=== PATIENT | female | born 1980 | race Caucasian/White ===

== ENCOUNTER 2023-12-25 09:39 | Oncology outpatient (recurring) (ONCR) | payer MEDICAID, SELFPAY ==
[2023-12-25 10:00] VITALS: BP 123/82; PULSE 61; RESP 16; TEMP 36.2; O2SAT 96
[2023-12-25] MEDS: sodium chloride 0.9% 250 ML 75 ML IV (10:30)
[2023-12-25] MEDS: iron sucrose 500 MG in sodium chloride 0.9% 250 ML 78 MG IV (10:53)
[2023-12-25 13:45] VITALS: BP 136/87; PULSE 74; TEMP 37.1; O2SAT 98
== END 2024-01-06 23:59 | disposition home or self-care (01) ==
PROVIDERS: Family Provider Family Medicine; PCP Family Medicine; Visit Provider Family Medicine
DX: D50.9 Iron deficiency anemia, unspecified (principal)
CPT/HCPCS: 96365; 96366; J1756; J7050

== ENCOUNTER 2024-05-26 10:08 | Oncology outpatient (recurring) (ONCR) | payer MEDICAID, SELFPAY ==
[2024-05-17 14:17] VITALS: BP 133/81; PULSE 84; RESP 18; TEMP 36.3; O2SAT 98
[2024-05-17] MEDS: iron sucrose 200 MG in sodium chloride 0.9% (100 ml) 100 ML 220 MG IV (14:27)
[2024-05-17 15:00] VITALS: BP 130/84; PULSE 84; RESP 16; TEMP 36.8; O2SAT 98
[2024-05-19 10:23] VITALS: BP 132/85; PULSE 92; TEMP 36.7; O2SAT 94
[2024-05-19] MEDS: iron sucrose 200 MG in sodium chloride 0.9% (100 ml) 100 ML 220 MG IV (10:46)
[2024-05-19 11:26] VITALS: BP 115/84; PULSE 80; RESP 16; TEMP 36.5; O2SAT 97
[2024-05-21 10:16] VITALS: BP 122/74; PULSE 76; RESP 16; TEMP 36.6; O2SAT 98
[2024-05-21] MEDS: iron sucrose 200 MG in sodium chloride 0.9% (100 ml) 100 ML 220 MG IV (10:27)
[2024-05-21 11:11] VITALS: BP 124/83; PULSE 74; RESP 16; O2SAT 95
[2024-05-24 08:45] VITALS: BP 129/83; PULSE 86; RESP 16; TEMP 36.4; O2SAT 97
[2024-05-24] MEDS: iron sucrose 200 MG in sodium chloride 0.9% (100 ml) 100 ML 220 MG IV (09:09)
[2024-05-24 09:43] VITALS: BP 118/75; PULSE 76; TEMP 36.8; O2SAT 97
[2024-05-26 10:33] VITALS: BP 133/78; PULSE 73; TEMP 36.7; O2SAT 96
[2024-05-26] MEDS: iron sucrose 200 MG in sodium chloride 0.9% (100 ml) 100 ML 220 MG IV (10:46)
[2024-05-26 11:34] VITALS: BP 135/66; PULSE 68; RESP 16; TEMP 36.5; O2SAT 98
== END 2024-06-07 23:59 | disposition home or self-care (01) ==
PROVIDERS: PCP Family Medicine; Visit Provider Family Medicine
DX: Z79.899 Other long term (current) drug therapy (principal); D50.9 Iron deficiency anemia, unspecified; Z53.9 Procedure and treatment not carried out, unspecified reason
CPT/HCPCS: 96365; J1756